=== PATIENT | male | born 1955 | race Caucasian/White ===

== ENCOUNTER 2025-04-05 11:40 | Day surgery (SDC) | payer MEDICARE, BC ==
[2025-04-01 10:00] LABS: MEAN PLATELET VOLUME 7.9 FL (7.4-10.4); RED CELL DISTRIBUTION WIDTH 13.3 % (11.5-14.5)
[2025-04-01 10:14] LABS: APTT 27 SECONDS (22-32); INR 1.0 INR
[2025-04-01 10:21] LABS: CHOL/HDL RATIO 2.4 (0.00-4.99); CREATININE 0.95 MG/DL (0.60-1.10); TOTAL CARBON DIOXIDE 24.4 MMOL/L (24-32); eGFR 78 ML/MIN
[2025-04-01 11:07] LABS: LDL CHOLESTEROL 52 MG/DL (50-100)
[~2025-04-05] VITALS: Ht 182.9 cm; Wt 106.1 kg
[2025-04-05] VITALS (8 sets, daily range): BP systolic 118–128; BP diastolic 77–86; PULSE 70–83; RESP 13–22; TEMP 97.9; O2SAT 93–97
[~2025-04-05 11:40] MED LIST: ASPI-1265 PO; LISI20TA28 PO; MELO-102 PO; MULT-1085 PO; ROSU40TA89 PO; TADA5TAB14 PO; TAMS-55 PO; UBID10CA4 PO
--- NOTE | 2025-04-05 13:06 | ELECTROCARDIOGRAPH REPORT ---
[facility] Test Date: 2025-04-05 Test Time: 13:04:53 Pat Name: ADITYA BOSCH Department: [facility] O Patient ID: [facility]-[id number] Room: Gender: M [employer]: : 1955 Requested By: MARYANN COPPOLA Order Number: [id number] Reading MD: Dr. ZACHARY Patel Measurements Intervals [place] Rate: 77 P: 13 UT: 176 QRS: -40 QRSD: 101 T: 19 QT: 365 QTc: 414 Interpretive Statements Sinus rhythm Left anterior fascicular block Abnormal R-wave progression, early transition Left ventricular hypertrophy Electronically Signed On 04-06-2025 16:53:[address] ZACHARY Patel Please click the below link to view image of tracing.
[2025-04-05] MEDS ORDERED: LIDOcaine 1% (10mg/ml) 2ml vial ONE (15:43)
[2025-04-05] MEDS ORDERED: verapamil 2.5 mg/ml inj IV ONE (15:43)
[2025-04-05] MEDS ORDERED: heparin 1,000unit/ml 10ml vial 10 ML ONE ×2 (15:44→16:16)
[2025-04-05] MEDS ORDERED: fentaNYL/PF 50MCG/1 ML 2ML syringe ONE (15:44)
[2025-04-05] MEDS ORDERED: midazolam 1 mg/ML 2ml injection ONE ×2 (15:44→16:51)
[2025-04-05] MEDS ORDERED: nitroGLYCERIN 500mcg/5mL D5W 5 ML IV ONE (15:45)
[2025-04-05] MEDS ORDERED: iohexol 350 MG/ML 50ML vial IV ONE (16:44)
[2025-04-05] MEDS ORDERED: clopidogrel 300mg tablet ONE (17:04)
[2025-04-05] MEDS ORDERED: CLOP75TA33 PO ×2 (17:35→17:55)
[2025-04-05] MEDS ORDERED: HYDROcodone/acetaminophen 5mg/325mg tablet PO PRN (17:50)
[2025-04-05] MEDS ORDERED: HYDROcodone/acetaminophen 10/325mg tab PO PRN (17:50)
--- NOTE | 2025-04-05 20:11 | CARDIAC CATH REPORT ---
Cardiac Cath Report Providers to CC CC: LILIAN COPPOLA MD Procedure Comments: 1. Left Heart Catheterization 2. Selective Coronary Angiography 3. Percutaneous Coronary Intervention of the Left Anterior Descending x 1 4. Right Radial Artery Access Brief History/Indications: 70yo man with HTN, HLD, CAD(s/p PCI LAD) being evaluated for surgery, found to have anterior ischemia on stress testing referred for evaluation Techniques: After informed consent was obtained, the patient was brought to the cardiac catheterization laboratory and prepped and draped in usual sterile fashion for left heart catheterization and other procedures mentioned above. The right wrist was anesthetized with 1% Lidocaine and the right radial artery accessed via the Seldinger technique after which a 6Fr sheath was placed. Through this a TIG was used to engage the left ventricle, the left coronary artery, and the right coronary artery. See below for interventional procedure details. At the conclusion of the case the sheath was removed and hemostasis obtained with a VascBand. Findings Findings: HEMODYNAMICS: LV: 95/- mmHg LVEDP: 4 mmHg Ao: 98/63, MAP 80 mmHg CORONARY ARTERIES: Rt Dominant LMCA: Luminal Irregularities LAD: 80% stenosis at the proximal edge of the mid-LAD stent. Extremely tortuous. Distal 20% stenosis D1: Luminal Irregularities D2: Luminal Irregularities LCx: Luminal Irregularities OM1: Luminal Irregularities OM2: Luminal Irregularities OM3: Luminal Irregularities RCA: 40% mid stenosis PDA: Luminal Irregularities PL: Luminal Irregularities PERCUTANEOUS CORONARY INTERVENTION of the LAD: An XB LAD 4.0 guide was used to engage the left coronary artery. The LAD lesion was crossed with a BMW wire. Attempted to advance a 2.0-x12mm balloon, however, unable to do so. The BMW wire was exchanged for a Choice PT wire. Pre-dilatation was performed with a 2.0x12mm balloon. Repeat angiography revealed inadequate pre-treatment of the lesion without evidence of dissection. The lesion was then pre-dilated with a 2.12u84xb and 2.5x12mm NC balloon. Subsequently, attempted to perform atherectomy with a 2.5x12mm Shockwave balloon, however, unable to advance. A Telescope guide extension was placed, and still unable to advance the shockwave balloon. The vessel was extremely tortuous so did not think rotablator would be a good option. The lesion was then again pre-dilated with the 2.5x12mm balloon at high pressures with better lesion modification. Subsequently, a 2.5x12mm [place] [place] was deployed across the lesion. The lesion was not post-dilated. Repeat angiography revealed adequate stent expansion without evidence of dissection. Results Results: 1. Obstructive CAD involving the mid-LAD proximal to the previously placed stent. 2. PCI of the LAD with 2.5x12mm [facility] [place] 3. RRA Access, closed with VascBand RECOMMENDATIONS: 1. Cont ASA 81mg QD indefinitely 2. Cont plavix 75mg QD x 6 months 3. Recommend uptitration of other max-tolerated GDMT MARYANN COPPOLA MD Apr 05, 2025 20:11
== END 2025-04-05 19:20 | disposition home or self-care (01) ==
LOC: SSTAY O 11:40
PROVIDERS: ATTEND Student in an Organized Health Care Education/Training Program
DX: R94.39 Abnormal result of other cardiovascular function study (principal); I25.10 Atherosclerotic heart disease of native coronary artery without angina pectoris; I10 Essential (primary) hypertension; E78.5 Hyperlipidemia, unspecified; M19.90 Unspecified osteoarthritis, unspecified site; Z88.2 Allergy status to sulfonamides; Z88.6 Allergy status to analgesic agent; Z79.01 Long term (current) use of anticoagulants; Z79.899 Other long term (current) drug therapy
CPT/HCPCS: 36415; 80048; 80061; 83695; 85025; 85610; 85730; 93005; 93458; 99152; 99153; A6258; A6402; C1725; C1751; C1769; C1874; C1894; C9600; J1644; J2003; J2250; J3010; J3490; J7030; Q9967; Z7610